=== PATIENT | male | born 1945 | race Caucasian/White ===

== ENCOUNTER 2024-04-20 11:34 | Outpatient (CLI) | payer OTHER | END 2024-04-20 23:59 | disposition home or self-care (01) | LOC: CARD DIAG 11:34 | PROVIDERS: ATTEND Chiropractor | DX: I08.0 Rheumatic disorders of both mitral and aortic valves (principal); I31.39 Other pericardial effusion (noninflammatory); I50.9 Heart failure, unspecified | CPT/HCPCS: 93306 ==